=== PATIENT | male | born 1965 | race Caucasian/White ===

== ENCOUNTER 2017-04-09 23:10 | Emergency (ER) | payer OTHER ==
[~2017-04-09] VITALS: Ht 162.6 cm; Wt 93.5 kg
[~2017-04-09 23:10] MED LIST: ASPI-664 PO; BENA20TA48 PO; LORA-186 PO
[2017-04-10 00:05] VITALS: Ht 162.6 cm; Wt 93.5 kg
[2017-04-10 02:29] LABS: ADD SCAN DIFF NO
[2017-04-10 02:30] LABS: BASOPHILS % 0.3 % (0.0-2.0); EOSINOPHILS # 0.3 10^3/ul (0.0-0.5); EOSINOPHILS % 3.3 % (0.0-7.0); HEMATOCRIT 42.6 % (42.0-52.0); HEMOGLOBIN 14.3 g/dl (14.0-18.0); LYMPHOCYTES # 2.5 10^3/ul (0.8-2.9); LYMPHOCYTES % 31.5 % (15.0-51.0); MEAN CORPUSCULAR HEMOGLOBIN 30.8 pg (29.0-33.0); MEAN CORPUSCULAR HGB CONC 33.6 g/dl (32.0-37.0); MEAN CORPUSCULAR VOLUME 91.8 fl (82.0-101.0); MEAN PLATELET VOLUME 9.5 fl (7.4-10.4); MONOCYTE # 0.8 10^3/ul (0.3-0.9); MONOCYTES % 10.2 % (0.0-11.0); NEUTROPHIL # 4.3 10^3/ul (1.6-7.5); NEUTROPHILS % 54.3 % (39.0-77.0); PLATELET COUNT 287 10^3/UL (140-415); RED BLOOD COUNT 4.64 10^6/ul (4.70-6.10); RED CELL DISTRIBUTION WIDTH 13.4 % (11.5-14.5); WHITE BLOOD COUNT 7.8 10^3/ul (4.8-10.8)
[2017-04-10 02:48] LABS: INR 0.91; PARTIAL THROMBOPLASTIN TIME 29.1 Sec (25.0-35.0); PROTIME 12.3 Sec (12.2-14.2)
[2017-04-10 02:49] LABS: ANION GAP 13 (8-16); BLOOD UREA NITROGEN 23 mg/dl (7-20); CALCIUM 9.4 mg/dl (8.4-10.2); CARBON DIOXIDE 30 mmol/L (21-31); CHLORIDE 103 mmol/L (97-110); CREATININE 1.16 mg/dl (0.61-1.24); GLUCOSE 104 mg/dl (70-220); POTASSIUM 4.6 mmol/L (3.5-5.1); SODIUM 141 mmol/L (135-144)
[2017-04-10 03:01] LABS: TROPONIN-I < 0.012 ng/ml (0.00-0.12)
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
--- NOTE | 2017-04-10 03:19 | RADRPT ---
PROCEDURE: Chest. CLINICAL INDICATION: Chest pain. TECHNIQUE: Single frontal view of the chest was obtained. COMPARISON: None. FINDINGS: The cardiac silhouette is within normal limits. The aortic arch is unremarkable. There is no focal consolidation, vascular congestion or pleural effusion. There is no pneumothorax. Suture anchors a re noted over the right glenoid. IMPRESSION: No evidence for active cardiopulmonary disease. .Julio César Palma MD, MD Date Time Electronically viewed and signed by .uJlio César Palma MD, MD on 04/10/2017 03:18 .T/
[2017-04-10 03:34] VITALS: BP 129/79; PULSE 77; RESP 24; TEMP 98.1
== END 2017-04-10 03:44 | disposition home or self-care (01) ==
LOC: E/R 23:10 → MERGE 23:10 → E/R 04-10 03:44
DX: R55 Syncope and collapse (principal); F17.210 Nicotine dependence, cigarettes, uncomplicated; I10 Essential (primary) hypertension; Z71.6 Tobacco abuse counseling
CPT/HCPCS: 36415; 71010; 80048; 84484; 85025; 85610; 85730; 93005; Z7502

== ENCOUNTER 2018-10-04 17:53 | Emergency (ER) | END 2018-10-04 22:56 | disposition home or self-care (01) ==